=== PATIENT | male | born 2000 | race Caucasian/White ===

== ENCOUNTER 2023-09-20 14:55 | Emergency (ER) | payer SELFPAY ==
[~2023-09-20] VITALS: Ht 175.3 cm; Wt 145.5 kg
[~2023-09-20 14:55] MED LIST: ABILIFY 15MG TA15 MG PO; ADHD MED PO; ALBUTEROL0.09 MG/A1 IH; AMOXICILLI250 MG/51 PO; COLACE50 MG PO; MULTIPLE VITAMI1 TAB PO; MVI PO; NO HOME MEDICATIONS; PHENERGAN W/CO120 ML PO; PREDNISONE20 MG PO; PROVENTIL0.09 MG/A1 IH; ZITHROMAX Z PA250 MG PO; ZOLOFT 100MG100 MG PO; claritin
[2023-09-20 15:01] VITALS: TEMP 98.4
[2023-09-20] MEDS ORDERED: LR 1,000 ML IV ONE (15:15)
[2023-09-20] MEDS ORDERED: Ondansetron 4 MG/2 ML VIAL IV ONE (15:15)
[2023-09-20] MEDS ORDERED: Pantoprazole 40 MG in NS 10 ML IV ONE (15:30)
[2023-09-20 15:47] LABS: BASO # 0.1 K/mm3 (0.0-0.2); BASO % 0.9 % (0.0-2.0); EOS # 0.1 K/mm3 (0.0-0.7); EOS % 1.2 % (0.0-4.0); GRAN # 4.8 K/mm3 (1.4-6.5); GRAN % 55.7 % (42.2-75.2); HEMATOCRIT 48.2 % (42.0-52.0); HEMOGLOBIN 16.3 g/dl (13.5-18.0); LYMPH # 2.8 K/mm3 (1.2-3.4); LYMPH % 32.8 % (20.0-51.0); MEAN CELL VOLUME 85 fl (80.0-100.0); MEAN CORPUSCULAR HEMOGLOBIN 29 pg (27-31); MEAN CORPUSCULAR HGB CONC 34 g/dl (33.0-37.0); MEAN PLATELET VOLUME 9.9 fl (7.4-10.4); MONO # 0.8 K/mm3 (0.1-0.6); PLATELET COUNT 271 K/mm3 (130-400)
[2023-09-20 16:30] LABS: ALBUMIN 3.3 g/dL (3.5-5.0); BILIRUBIN,TOTAL 0.4 mg/dL (0.2-1.2); C-REACTIVE PROTEIN 0.99 mg/dL (0.00-0.50); CALCIUM 9.4 mg/dL (8.4-10.2); CREATININE, serum 0.97 mg/dL (0.72-1.25); POTASSIUM 3.9 mEq/L (3.5-4.5); TOTAL PROTEIN 6.7 g/dl (6.2-8.1)
[2023-09-20] MEDS ORDERED: Iohexol 300 - 100 ML VIAL IV ONE (16:30)
[2023-09-20] MEDS ORDERED: NS 100 ML IV SCH (16:31)
[2023-09-20 16:55] LABS: COLLECTION METHOD CLEAN CATCH
[2023-09-20 17:02] LABS: URINE APPEARANCE CLEAR (CLEAR/HAZY); URINE BLOOD NEGATIVE (NEGATIVE); URINE COLOR YELLOW (YELLOW); URINE GLUCOSE NEGATIVE (NEGATIVE); URINE KETONE NEGATIVE (NEGATIVE); URINE NITRATE NEGATIVE (NEGATIVE); URINE PROTEIN(semi-quant) NEGATIVE (NEGATIVE); URINE UROBILINOGEN 0.2 E.U/dL (0.2-1.0)
[2023-09-20] MEDS ORDERED: ZOFRAN ODT4 MG PO (17:14)
[2023-09-20] MEDS ORDERED: PROTONIX 40MG T40 MG PO (17:14)
[2023-09-20 17:35] VITALS: BP 147/93; PULSE 97
== END 2023-09-20 17:35 | disposition home or self-care (01) ==
LOC: COL.ER 14:55
PROVIDERS: Family Medicine
DX: K29.70 Gastritis, unspecified, without bleeding (principal); Z79.899 Other long term (current) drug therapy
CPT/HCPCS: C9113; J2405; J7120; Q9967